=== PATIENT | female | born 1995 | race Hispanic/Latino ===

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

== ENCOUNTER 2017-06-04 13:13 | Emergency (ER) | payer SELFPAY ==
[2017-06-04 13:13] VITALS: BMI 19.5
[2017-06-05] MEDS ORDERED: Propofol 10 mg/ml Inj (20 ML) ONE (15:17)
== END 2017-06-04 15:16 | disposition left against medical advice (07) ==
LOC: ED 13:13
DX: Z02.89 Encounter for other administrative examinations (principal); R10.9 Unspecified abdominal pain